=== PATIENT | female | born 1960 | race African-American/Black ===

== ENCOUNTER 2018-02-23 15:06 | Emergency (ER) | payer OTHER, BC ==
[2018-02-23 15:34] VITALS: BP 129/73; PULSE 66; TEMP 98.3; BMI 29.2
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
[2018-02-23] MEDS ORDERED: KETOROLAC TROMETHAMINE 60 MG/2 ML VIAL IM ONE (16:09)
[2018-02-23] MEDS ORDERED: KETOROLAC TROMETHAMINE 60 MG/2 ML VIAL ONE (16:11)
== END 2018-02-23 16:28 | disposition home or self-care (01) ==
LOC: JERFT 15:06
PROC: 3E0233Z Introduction of Anti-inflammatory into Muscle, Percutaneous Approach (ICD-10-PCS; principal; 2018-02-23)
DX: S16.1XXA Strain of muscle, fascia and tendon at neck level, initial encounter (principal); M62.830 Muscle spasm of back; V89.2XXA Person injured in unspecified motor-vehicle accident, traffic, initial encounter; Y92.488 Other paved roadways as the place of occurrence of the external cause; Y93.89 Activity, other specified; Y99.8 Other external cause status
CPT/HCPCS: 73110-TC-LR-FY; 73130-TC-LR-FY; 99281-25